=== PATIENT | female | born 1940 | race Caucasian/White ===

== ENCOUNTER 2019-05-20 04:58 | Inpatient (IN) | payer MEDICARE, BC ==
[2019-05-20] MEDS ORDERED: Ondansetron PF 4 MG/2 ML Vial ONE (05:12)
[2019-05-20] MEDS ORDERED: Crotalidae Polyvlnt Antivenin 2 GM in Sodium Chloride 0.9% 250 ML 250 ML IVPB PRN (06:00)
[2019-05-20] MEDS ORDERED: diphenhydrAMINE 50 MG/ML VIAL IVP PRN (08:47)
[2019-05-20] MEDS ORDERED: Morphine 4 MG/ML VIAL SLOW IVP PRN (08:47)
[2019-05-20] MEDS ORDERED: Ondansetron PF 4 MG/2 ML Vial IVP PRN ×2 (08:47→10:50)
[2019-05-20] MEDS ORDERED: Acetaminophen 500 MG TAB PO PRN (08:48)
[2019-05-20 09:53] LABS: Troponin I 0.017 ng/mL (< 0.028)
[2019-05-20] MEDS ORDERED: Ondansetron ODT 4 MG TAB PO PRN (10:50)
[2019-05-20] MEDS ORDERED: hydrALAZINE 20 MG/ML VIAL SLOW IVP PRN (10:50)
[2019-05-20] MEDS ORDERED: diphenhydrAMINE 25 MG in Sodium Chloride 0.9% 50 ML IVPB PRN (10:52)
--- NOTE | 2019-05-20 12:52 | HP ---
PRIMARY CARE PROVIDER: Good White MD CHIEF COMPLAINT: Snake bite. HISTORY OF PRESENT ILLNESS: This is a 79-year-old female, who presents to [facility] after sustaining a copperhead snake bite to her left inner ankle. The patient states she was attempting to find her cat in the yard when she walked out under sidewalk approximately 10:30 p.m. on 05/19/2019, and felt a sharp bite to her left ankle. The patient saw the snake and confirmed this was a copperhead, at which point, she notified her daughter. The patient was brought to the [place] [facility] initially and treated with pain medication. The patient was initially managed in the [place] [facility] and given IV morphine sulfate, Benadryl, as well as CroFab x2 vials, and Zofran. The patient states she has had no similar incidence in the past and noted increased swelling to the left lower extremity with difficult weightbearing. The patient denied any associated chest pain, shortness of breath, throat swelling, or allergic type reactions. The patient did admit to some nausea and vomiting after receiving morphine sulfate and states she is allergic to this medication. The patient currently stating pain is approximately 4/10, controlled currently with elevating the left lower extremity in the bed and keeping the leg immobile. PAST MEDICAL HISTORY: 1. Hypertension. 2. Hyperlipidemia. 3. History of diverticulitis with fistula. PAST SURGICAL HISTORY: 1. Status post colon resection due to fistula after diverticulitis. 2. Status post cholecystectomy. 3. Status post hernia repair. 4. Status post hysterectomy. CURRENT MEDICATIONS: 1. Lisinopril 10 mg p.o. b.i.d. 2. Lipitor 10 mg p.o. daily. ALLERGIES: TO ACETAMINOPHEN, DEMEROL, NORCO, LEVAQUIN, MACROBID, TRAMADOL, AND VICODIN. FAMILY HISTORY: No inheritable disease per patient's report. SOCIAL HISTORY: The patient resides in the [place] area with her spouse. Accompanied by her daughter in the hospital. No current alcohol, tobacco, or illicit drug use. Functional of all activities of daily living. REVIEW OF SYSTEMS: CONSTITUTIONAL: Negative for weight loss or gain, ability to conduct usual activities. SKIN: Negative for rash, itching. EYES: Negative for double vision, pain. ENT/MOUTH: Negative for nose bleeding, neck stiffness, pain, tenderness. CARDIOVASCULAR: Negative for palpitations, dyspnea on exertion, orthopnea. RESPIRATORY: Negative for shortness of breath, wheezing, cough, hemoptysis, fever or night sweats. GASTROINTESTINAL: Negative for poor appetite, abdominal pain, heartburn, nausea, vomiting, constipation, or diarrhea. GENITOURINARY: Negative for urgency, frequency, dysuria, nocturia. MUSCULOSKELETAL: Negative for pain, swelling. NEUROLOGIC/PSYCHIATRIC: Negative for anxiety, depression. ALLERGY/IMMUNOLOGIC: Negative for skin rash, bleeding tendency. Otherwise, negative except as stated per HPI. PHYSICAL EXAMINATION: VITAL SIGNS: On admission, blood pressure 149/74, pulse 86, respiratory rate 18, temperature 97.9 degrees Fahrenheit, O2 saturation 93% on room air. GENERAL APPEARANCE: This is a 79-year-old female, alert and oriented x3, pleasant, conversant, in no acute distress. HEENT: Pupils are equal, round, reactive to light and accommodation. Extraocular muscles are intact. No scleral icterus. No conjunctival injection. Nares patent. OP is clear. Teeth in good repair. NECK: Supple. No cervical adenopathy. No thyromegaly. No carotid bruits. No JVD appreciated. Cervical spine with full active and passive range of motion. No meningeal signs noted. CHEST: Lungs are clear to auscultation bilaterally. CARDIOVASCULAR: S1 and S2 without noted murmur, rub, or gallop. ABDOMEN: Rounded, soft, nontender, nondistended. Bowel sounds are positive in all 4 quadrants. There is no hepatosplenomegaly. No abdominal bruits. No rebound or guarding appreciated. EXTREMITIES: Warm and dry with fair turgor. Left lower extremity with edema and mild erythema to the mid donaldson. Two puncture wounds noted to the medial malleolus region. Mild tenderness to palpation of the entire left foot. Pulses are palpable distally at the dorsalis pedis, posterior tibial, and popliteal arteries bilaterally. Capillary refill less than 2 seconds. NEUROLOGIC: Cranial nerves 2 through 12 are grossly intact. No focal or lateralizing signs appreciated. PERTINENT LAB AND X-RAY FINDINGS: Complete metabolic profile within normal limits. CBC showed a white blood cell count of 21.5, hemoglobin 14, hematocrit 44, and platelet count 264 with 40% neutrophils. PT 15.8, INR 1.3, PTT 30.1. D-dimer 0.75. EKG dated 05/20/2019 by my interpretation shows sinus mechanism with heart rates in the 90s. Left bundle-branch block pattern noted. Attenuated R-waves in the precordial leads. Left axis deviation. ASSESSMENT AND PLAN: 1. Snake envenomation of the left ankle. Status post CroFab x2 vials in the emergency room. We will continue general wound care monitoring. Pain control as clinically indicated. Benadryl 25 mg IV q.6 hours p.r.n. No current evidence to suggest infectious process. 2. Leukocytosis secondary to #1. Suspect demargination effect to given snake bite. Continue serial monitoring and repeat CBC in the a.m. 3. Hypertension. Resume home antihypertensive regimen and monitor clinical response. 4. Coagulopathy secondary to #1. We will continue general monitoring. Avoid anticoagulants and NSAIDs. 5. Prophylaxis. Tetanus immunization updated. No SCDs or anticoagulation for DVT prophylaxis. Pepcid 20 mg p.o. b.i.d. 6. Code status, full. Surrogate medical decision maker is the patient's daughter. Job ID: [id number]
[2019-05-20] MEDS: Famotidine 20 MG TAB PO SCH (20:20)
[2019-05-21 04:52] LABS: INR-International Normal Ratio 1.2; PTT 33.4 SEC (22.9-36.1); Prothrombin Time 15.5 SEC (12.0-14.7)
[2019-05-21 05:05] VITALS: BMI 30.2
[2019-05-21 05:09] LABS: Band 10 % (5-11); Eosinophils 1 % (0-10); Hemoglobin 12.9 g/dL (12.0-16.0); Lymphocytes 28 % (21-51); MDiff Complete? YES; Mean Corpuscular HGB CONC 33.1 g/dL (32.0-36.0); Mean Corpuscular Hemoglobin 30.9 pg (27.0-31.0); Mean Corpuscular Volume 93.1 fL (78.0-98.0); Mean Platelet Volume 6.6 fL (7.4-10.4); Monocytes 9 % (0-10); Neutrophil 52 % (42-75); Platelet Count 235 thou/uL (130-400); RBC Distribution Width 11.8 % (11.5-14.5); Red Blood Cell (RBC) Count 4.18 mill/uL (4.20-5.40); White Blood Cell (WBC) Count 9.9 thou/uL (4.8-10.8)
[2019-05-21 05:14] LABS: Anion Gap 10 mmol/L (10-20); BUN (Urea Nitrogen) 19 mg/dL (9.8-20.1); Calc. Creatinine Clearance 81 mL/min (70-130); Calcium 8.7 mg/dL (7.8-10.44); Carbon Dioxide 26 mmol/L (23-31); Chloride 111 mmol/L (98-107); Estimated GFR-MDRD 72; Glucose 109 mg/dL (83-110); Potassium 4.7 mmol/L (3.5-5.1); Sodium 142 mmol/L (136-145)
[2019-05-21] MEDS: Famotidine 20 MG TAB PO SCH (08:36)
[2019-05-21] MEDS ORDERED: Lisinopril 10 MG TAB PO SCH (09:00)
--- NOTE | 2019-05-21 12:12 | DIS ---
DATE OF ADMISSION: 05/20/2019 DATE OF DISCHARGE: 05/21/2019 DISCHARGE DIAGNOSES: 1. Snake envenomation of the left ankle. 2. Leukocytosis secondary to #1. 3. Hypertension, stable. 4. Coagulopathy, improved. CONSULTATIONS: None. PERTINENT LAB AND X-RAY FINDINGS: Troponin-I ranged between 0.017 to 0.043. PT 15.5, INR 1.2. CBC showed a white blood cell count ranging between 9.4 to 21.5. HOSPITAL COURSE: The patient was admitted to the telemetry unit after initially presenting status post copperhead snake bite to the left ankle. The patient received CroFab x2 vials in addition to Zofran in the emergency department. The patient also received Benadryl and morphine sulfate. The patient clinically stabilized with general observation with edema and erythema noted of the left lower extremity. The patient exhibited no constitutional symptoms or fever, and elevated the left lower extremity during her hospital course. The patient overall remained clinically stable with general observation and local pain control. I have examined the patient at the time of discharge and discussed followup instructions. The patient verbalizes understanding and agreement, ready for discharge on 05/21/2019. DISCHARGE MEDICATIONS: 1. Lipitor 10 mg p.o. daily. 2. Lisinopril 10 mg p.o. b.i.d. FOLLOWUP: The patient may follow up with her primary care provider, Dr. White within 7 days of discharge. CONDITION ON DISCHARGE: Stable. ACTIVITY: Ad-lilliam. Elevate left lower extremity while seated or resting. DIET: Regular. CODE STATUS: Full. DISPOSITION: To home on 05/21/2019. Job ID: [id number]
[2019-05-21 12:25] VITALS: BP 140/97; TEMP 97.8
[2019-05-21] MEDS ORDERED: Atorvastatin Calcium 10 MG TAB PO SCH (21:00)
== END 2019-05-21 14:02 | disposition home or self-care (01) | DRG 918 ==
LOC: ERS 04:58 → 2NO 05:36
PROVIDERS: ADMIT Internal Medicine; ATTEND Internal Medicine
DX: T63.091A Toxic effect of venom of other snake, accidental (unintentional), initial encounter (principal); D68.8 Other specified coagulation defects; Y92.480 Sidewalk as the place of occurrence of the external cause; I10 Essential (primary) hypertension; D72.829 Elevated white blood cell count, unspecified; E78.5 Hyperlipidemia, unspecified; Z90.710 Acquired absence of both cervix and uterus; Z90.49 Acquired absence of other specified parts of digestive tract; Z88.1 Allergy status to other antibiotic agents; Z88.5 Allergy status to narcotic agent; Z79.899 Other long term (current) drug therapy
CPT/HCPCS: 36415; 80048; 85007; 85027; 85610; 85730; 86850; 86900; 86901; 93005; 96365; 96375; J0840; J1200; J2405; J7050

== ENCOUNTER 2019-08-04 12:37 | Day surgery (SDC) | payer MEDICARE, BC | END 2019-08-04 13:18 | disposition home or self-care (01) | LOC: SDC 12:37 | PROVIDERS: ATTEND Ophthalmology | PROC: 085K3ZZ Destruction of Left Lens, Percutaneous Approach (ICD-10-PCS; principal; 2019-08-04) | PROC: 085J3ZZ Destruction of Right Lens, Percutaneous Approach (ICD-10-PCS; 2019-08-04) | DX: H26.493 Other secondary cataract, bilateral (principal); I10 Essential (primary) hypertension; Z79.899 Other long term (current) drug therapy; Z88.1 Allergy status to other antibiotic agents; Z88.5 Allergy status to narcotic agent; Z88.8 Allergy status to other drugs, medicaments and biological substances ==